=== PATIENT | male | born 1980 | race Caucasian/White ===

== ENCOUNTER 2017-03-18 16:54 | Emergency (ER) | payer OTHER ==
[2017-03-18 17:15] VITALS: BP 116/36; PULSE 62; TEMP 98.1; BMI 18.8
[2017-03-18] MEDS ORDERED: DIPHTH,PERTUSS(ACELL),TET 0.5 ML DISP.SYRIN IM ONE (17:52)
--- NOTE | 2017-03-18 17:55 | PDOC ---
History of Present Illness - General Chief Complaint: Laceration Stated Complaint: FINGER LACERATION Time Seen by Provider: 03/18/17 17:33 History Source: Patient - History of Present Illness Timing/Duration: reports: just prior to arrival Location: reports: hands Past History - Past Medical History Allergies/Adverse Reactions: Allergies Allergy/AdvReac Type Severity Reaction Status Date / Time No Known Allergies Allergy Verified 03/18/17 17:15 Home Medications: Ambulatory Orders NK [No Known Home Medication] 03/18/17 Other medical history: NONE - Psycho/Social/Smoking Cessation Hx Suicidal Ideation: No Smoking History: Never smoked Hx Alcohol Use: No Drug/Substance Use Hx: No Review of Systems - Review of Systems Integumentary: Yes: Other (laceration) *Physical Exam - Vital Signs Last Vital Signs Temp Pulse Resp BP Pulse Ox 98.1 F 62 20 116/36 100 03/18/17 17:11 03/18/17 17:11 03/18/17 17:11 03/18/17 17:11 03/18/17 17:11 - Physical Exam General Appearance: Yes: Appropriately Dressed. 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 and here w/ finger lac to finger after striking finger against sharp metal edge of school board today see exam Cutaneous finger lac -tetanus -dermabond 03/18/17 18:27 *DC/Admit/Observation/Transfer Diagnosis at time of Disposition: Laceration - Discharge Dispostion Disposition: HOME Condition at time of disposition: Good - Patient Instructions Printed Discharge Instructions: DI for Laceration Repair Additional Instructions: Do not apply topical antibiotics to the wound as it will break down the adhesive You can shower while the adhesive is on the skin, but do not soak or scrub the area for 7 to 10 days. Wet skin should be gently patted dry The adhesive will peel off when the epithelial layer sloughs off, usually by 5 to 10 days Return to ED for redness, pus or fever
== END 2017-03-18 18:30 | disposition home or self-care (01) ==
LOC: JERFT 16:54
PROC: 0HQFXZZ Repair Right Hand Skin, External Approach (ICD-10-PCS; principal; 2017-03-18)
DX: S61.218A Laceration without foreign body of other finger without damage to nail, initial encounter (principal); W22.8XXA Striking against or struck by other objects, initial encounter; Y93.89 Activity, other specified; Y92.410 Unspecified street and highway as the place of occurrence of the external cause; Y99.0 Civilian activity done for income or pay
CPT/HCPCS: 90715; 99281-25

== ENCOUNTER 2017-03-24 01:47 | Emergency (ER) | payer OTHER ==
[2017-03-24 02:09] VITALS: BP 122/70; PULSE 56; TEMP 98.6; BMI 19.3
[2017-03-24] MEDS ORDERED: BACITRACIN 15 GM TUBE TOPICAL OINTMENT TP ONE (02:37)
[2017-03-24] MEDS ORDERED: BACITRACIN 0.9 GM PACKET ONE (02:40)
--- NOTE | 2017-03-24 02:43 | PDOC ---
History of Present Illness - General Chief Complaint: Pain Stated Complaint: INJURY,FINGER Time Seen by Provider: 03/24/17 02:12 History Source: Patient Exam Limitations: No Limitations - History of Present Illness Initial Comments: 03/24/17 02:38 36yo Male patient presents to ED c/o right middle finger pain. Patient states he was seen in this ED on Thursday for finger injury while throwing out trash. Patient reports wound was glued and flap has opened up and he is having a lot of pain. Patient denies any other complaints at this time. Past History - Travel Traveled outside of the country in the last 30 days: No Close contact w/someone who was outside of country & ill: No - Past Medical History Allergies/Adverse Reactions: Allergies Allergy/AdvReac Type Severity Reaction Status Date / Time No Known Allergies Allergy Verified 03/24/17 02:01 Home Medications: Ambulatory Orders Bacitracin - [Bacitracin Topical Ointment -] 1 applic TP DAILY PRN #1 tube 03/24 Cephalexin [Keflex] 500 mg PO BID #14 capsule 03/24/17 Oxycodone HCl/Acetaminophen [Endocet 5-325 Tablet] 1 each PO Q6H PRN #20 tablet MDD 4 tabs 03/24/17 Other medical history: Pt denies - Psycho/Social/Smoking Cessation Hx Suicidal Ideation: No Smoking History: Never smoked Have you smoked in the past 12 months: No Information on smoking cessation initiated: No Hx Alcohol Use: No Drug/Substance Use Hx: No Substance Use Type: None Review of Systems - Review of Systems Able to Perform ROS?: Yes Is the patient limited Bel[place]ian proficient: No Integumentary: Yes: Other (Wound to right middle finger. Finger Pain) All Other Systems: Reviewed and Negative *Physical Exam - Vital Signs Last Vital Signs Temp Pulse Resp BP Pulse Ox 98.6 F 56 L 18 122/70 100 03/24/17 02:02 03/24/17 02:02 03/24/17 02:02 03/24/17 02:02 03/24/17 02:02 - Physical Exam General Appearance: Yes: Nourished, Appropriately Dressed, Mild Distress. No: Apparent Distress, Moderate Distress, Severe Distress Respiratory/Chest: positive: Lungs Clear, Normal Breath Sounds. negative: Chest Tender, Respiratory Distress, Accessory Muscle Use, Labored Respiration, Rapid RR Cardiovascular: positive: Regular Rhythm, Regular Rate Musculoskeletal: positive: Normal Inspection. negative: CVA Tenderness, Decreased Range of Motion, Vertebral Tenderness Extremity: positive: Normal Capillary Refill, Normal Inspection, Normal Range of Motion. negative: Pedal Edema, Swelling, Calf Tenderness, Erythema, Inflammation Integumentary: positive: Normal Color, Dry, Warm, Other (Wound to right middle finger, tender to touch, healing. Non-bleeding, no odor, discharge noted. Flap opened and very weak. Unable to suture close.) Neurologic: positive: travel money advisor II-XII NML intact, Fully Oriented, Alert, Normal Mood/ Affect, Normal Response, Motor Strength 5/5 *DC/Admit/Observation/Transfer Diagnosis at time of Disposition: Laceration - Discharge Dispostion Disposition: HOME Condition at time of disposition: Stable Admit: No - Prescriptions Prescriptions: Bacitracin - [Bacitracin Topical Ointment -] 1 applic TP DAILY PRN #1 tube PRN Reason: Wound Care Oxycodone HCl/Acetaminophen [Endocet 5-325 Tablet] 1 each PO Q6H PRN #20 tablet MDD 4 tabs PRN Reason: Severe Pain Cephalexin [Keflex] 500 mg PO BID #14 capsule - Patient Instructions Printed Discharge Instructions: DI for Laceration Repair With Dermabond Additional Instructions: Wound care daily and as needed. Take medications as prescribed. Do not drive, drink alcohol, or operate heavy machinery while taking Endocet. Use Motrin or Tylenol first, then Endocet for breakthrough pain as needed. Keep finger covered while working and uncovered at home while resting. Return if any concerns for further evaluation. Print Language: SURINAMESE - Post Discharge Activity Work/School Note: Back to Work
== END 2017-03-24 03:01 | disposition home or self-care (01) ==
LOC: JER 01:47
DX: T81.33XA Disruption of traumatic injury wound repair, initial encounter (principal)
CPT/HCPCS: 99282-25

== ENCOUNTER 2019-04-29 22:33 | Emergency (ER) | payer OTHER ==
[2019-04-29 22:47] VITALS: BP 114/68; PULSE 84; TEMP 98.8; BMI 19.4
[2019-04-29] MEDS ORDERED: DEXAMETHASONE 4 MG TABLET (FP) PO ONE (23:36)
--- NOTE | 2019-04-29 23:36 | PDOC ---
History of Present Illness - General Chief Complaint: Sore Throat Stated Complaint: SORE THROAT Time Seen by Provider: 04/29/19 23:07 History Source: Patient Exam Limitations: No Limitations - History of Present Illness Initial Comments: 04/29/19 23:34 HISTORY OF PRESENT ILLNESS: 38-year-old otherwise healthy male presents emergency department for evaluation of nasal congestion, postnasal drip, sore throat, moist cough and body aches for the past 7 days. Patient has been taking [id number] medications she believed for antibiotics from [place]. He reports improvement of symptoms after taking paracetamol over the past 7 days. 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 He denies fevers, chills, shortness of breath, chest pain, nausea or vomiting. No recent travel or sick contacts. PAST MEDICAL HISTORY: Denies past medical history SURGICAL HISTORY: Denies ALLERGIES: No known drug allergies REVIEW OF SYSTEMS General/Constitutional: +fever. Denies weakness, weight change. HEENT: Denies change in vision. Denies ear pain or discharge. +sore throat. Cardiovascular: Denies chest pain or shortness of breath. Respiratory: Moist productive cough. Denies wheezing, or hemoptysis. Gastrointestinal: Denies nausea, vomiting, diarrhea or constipation. Denies rectal bleeding. Genitourinary: Denies dysuria, frequency, or change in urination. Musculoskeletal: +myalgias. Denies neck or back pain. Skin and breasts: Denies rash or easy bruising. Neurologic: Denies headache, vertigo, loss of consciousness, or loss of sensation. Psychiatric: Denies depression or anxiety. Endocrine: Denies increased thirst. Denies abnormal weight change. Hematologic/Lymphatic: Denies anemia, easy bleeding, or history of blood clots. Allergic/Immunologic: Denies hives or skin allergy. Denies latex allergy. PHYSICAL EXAM General Appearance: Well-appearing, appropriately dressed. No apparent distress , no intoxication. HEENT: EOMI, PERRLA, normal voice, TMs retracted bilaterally. No conjunctival pallor. No photophobia, scleral icterus. Oropharynx erythematous without lesions or exudate. Cobblestoning noted in the posterior. No nasal discharge present. Neck: Supple. Trachea midline. No tenderness, rigidity, carotid bruit, stridor , or thyromegaly. Nontender anterior cervical lymphadenopathy present. Respiratory/Chest: Lungs CTAB. No shortness of breath, chest tenderness, respiratory distress, accessory muscle use. No crackles, rales, rhonchi, stridor , wheezing, dullness Cardiovascular: RRR. S1, S2. No JVD, murmur, bradycardia, tachycardia. Vascular Pulses: Dorsalis-Pedis (R): 2+, Dorsalis-Pedis (L): 2+ Gastrointestinal/Abdominal: Normal bowel sounds. Abdomen soft, non-distended. No tenderness or rebound tenderness. No organomegaly, pulsatile mass, guarding, hernia, hepatomegaly, splenomegaly. Musculoskeletal/Extremities: Normal inspection. FROM of all extremities, normal capillary refill. Pelvis Stable. No CVA tenderness. No tenderness to extremities, pedal edema, swelling, erythema or deformity. Integumentary: Appropriate color, dry, warm. 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 Fully oriented, alert. Appropriate mood/affect. Motor strength 5/5. No appreciable EOM palsy, facial droop or sensory deficit. 04/30/19 00:33 Is this a multiple visit Asthma Patient?: No Past History - Past Medical History Allergies/Adverse Reactions: Allergies Allergy/AdvReac Type Severity Reaction Status Date / Time No Known Allergies Allergy Verified 04/29/19 22:47 Home Medications: Ambulatory Orders Bacitracin - [Bacitracin Topical Ointment -] 1 applic TP DAILY PRN #1 tube 03/24 Oxycodone HCl/Acetaminophen [Endocet 5-325 Tablet] 1 each PO Q6H PRN #20 tablet MDD 4 tabs 03/24/17 - Psycho Social/Smoking Cessation Hx Smoking History: Never smoked Have you smoked in the past 12 months: No Information on smoking cessation initiated: No Hx Alcohol Use: Yes Drug/Substance Use Hx: No Substance Use Type: None *Physical Exam - Vital Signs Last Vital Signs Temp Pulse Resp BP Pulse Ox 98.8 F 84 18 114/68 97 04/29/19 22:43 04/29/19 22:43 04/29/19 22:43 04/29/19 22:43 04/29/19 22:43 Medical Decision Making - Medical Decision Making 04/29/19 23:34 A/P: 38-year-old male without medical history with 1 week of upper respiratory viral infection Decadron 10 mg orally now Discharge home Supportive treatment is been discussed with the patient is verbalized understanding of discharge instructions. Portions of this note have been documented using voice recognition software. As a result, errors may occur in the in school suspension aide process. Effort has been made to correct all grammatical and in school suspension aide error, but some may have been missed. Discharge - Discharge Information Problems reviewed: Yes Clinical Impression/Diagnosis: URI (upper respiratory infection) Qualifiers: URI type: unspecified viral URI Qualified Code(s): J06.9 - Acute upper respiratory infection, unspecified Condition: Fair Disposition: HOME - Admission No - Follow up/Referral - Patient Discharge Instructions Additional Instructions: Rest, drink lots of fluids: Teas, water, soups, Pedialyte Saltwater gargles Steamy showers/seem to face break up mucus Avoid contact with others until fevers and cough resolved Lots of handwashing and good hygiene Continue [id number] medications for symptomatic relief Tylenol or Motrin for fever and pain Followup with private physician in one to 2 days as needed Return to emergency department for worsened symptoms, fevers, dehydration - Post Discharge Activity Work/Back to School Note: Back to Work
[2019-04-29] MEDS ORDERED: DEXAMETHASONE SOD PHOSPHATE 10 MG/1 ML VIAL ONE (23:40)
== END 2019-04-29 23:53 | disposition home or self-care (01) ==
LOC: JER 22:33
DX: J06.9 Acute upper respiratory infection, unspecified (principal)
CPT/HCPCS: 99281-25